=== PATIENT | male | born 1935 | race Hispanic/Latino ===

== ENCOUNTER 2017-09-30 12:46 | Emergency (ER) | payer MEDICARE ==
--- NOTE | 2017-09-30 13:43 | Emergency Department Report ---
Blank Doc - Documentation Documentation: Patient is a 2-year-old gentleman who went to the bathroom and has balance issues and fell after eating up from the commode. Patient states he fell backwards landing on his buttock and he has low back pain at this time. Patient had x-rays of his back will be reassessed by VERONICA thank you
[2017-09-30] MEDS ORDERED: ULTRAM PO ONE (13:44)
--- NOTE | 2017-09-30 13:50 | Emergency Department Report ---
ED Back Pain/Injury HPI - General Chief Complaint: Back Pain/Injury Stated Complaint: BACK PAIN Time Seen by Provider: 09/30/17 13:32 Source: patient Limitations: No Limitations - History of Present Illness Initial Comments: This is a 82-year-old male nontoxic, well nourished in appearance, no acute signs of distress presents to the ED with c/o of low back pain status post fall. Patient stated this morning he was going to the bathroom to urinate and lost his balance and fell backwards and landed on his lumbar spine. Patient denies any head trauma or loss of concessions. Patient discussed pain as achy that it radiates bilaterally to lower extremities. Denies any bladder or bowel stability. Denies any numbness, tingling, fever, chills, headache, stiff neck, abdominal pain, chest pain, short of breath, blurry vision. Vision denies decrease or abnormal gait. Patient denies any drug allergies or significant past medical history. MD Complaint: back pain, fall -: This morning Similar Symptoms Previously: Yes Place: home Radiation: left leg, right leg Severity: mild Severity scale (0 -10): 8 Quality: aching Consistency: constant Improves With: immobilization, supine, sitting upright Worsens With: movement, walking Context: fall Associated Symptoms: denies other symptoms. denies: confusion, weakness, chest pain, numbness, difficulty walking, cough, difficulty urinating, diaphoresis, incontinence, fever/chills, constipation, headaches, abdominal pain, loss of appetite, malaise, nausea/vomiting, rash, seizure, shortness of breath, syncope - Related Data Home Medications Medication Instructions Recorded Confirmed Last Taken Warfarin Sodium 5 mg PO DAILY 06/26/14 01/29/15 1 Day Ago ~01/28/15 Losartan [Cozaar] 12.5 mg PO QDAY 01/29/15 01/29/15 1 Day Ago ~01/28/15 Metoprolol [Lopressor] 12.5 mg PO DAILY 01/29/15 01/29/15 1 Day Ago ~01/28/15 Simvastatin [Zocor TAB] 20 mg PO QHS 01/29/15 01/29/15 1 Day Ago ~01/28/15 Previous Rx's Medication Instructions Recorded Last Taken Type Ibuprofen [Motrin] 600 mg PO Q8H PRN #30 tablet 09/30/17 Unknown Rx Allergies Allergy/AdvReac Type Severity Reaction Status Date / Time adhesive Allergy Itching Verified 12/18/14 14:00 ED Review of Systems ROS: Stated complaint: BACK PAIN Other details as noted in HPI Constitutional: denies: chills, fever Eyes: denies: eye pain, eye discharge, vision change ENT: denies: ear pain, throat pain Respiratory: denies: cough, shortness of breath, wheezing Cardiovascular: denies: chest pain, palpitations Endocrine: no symptoms reported Gastrointestinal: denies: abdominal pain, nausea, diarrhea Genitourinary: denies: urgency, dysuria Musculoskeletal: back pain. denies: joint swelling, arthralgia Skin: denies: rash, lesions Neurological: denies: headache, weakness, paresthesias Psychiatric: denies: anxiety, depression Hematological/Lymphatic: denies: easy bleeding, easy bruising ED Past Medical Hx - Past Medical History Hx Hypertension: Yes Hx Heart Attack/AMI: (Stable CHF) Hx Congestive Heart Failure: Yes Hx Diabetes: Yes Hx Liver Disease: Yes (some mass in the gallbladder on x-ray) Hx Kidney Stones: Yes (MULTIPLE KIDNEY STONE CURRENTLY WIHT STONE IN RI KIDNEY ) Hx HIV: No - Surgical History Hx Coronary Stent: Yes Hx Pacemaker: Yes Hx Internal Defibrillator: Yes (PACEMAKER/DEFIB FOR TACHYCARDIA) Hx Appendectomy: Yes - Social History Smoking Status: Never Smoker Substance Use Type: None - Medications Home Medications: Home Medications Medication Instructions Recorded Confirmed Last Taken Type Warfarin Sodium 5 mg PO DAILY 06/26/14 01/29/15 1 Day Ago History ~01/28/15 Losartan [Cozaar] 12.5 mg PO QDAY 01/29/15 01/29/15 1 Day Ago History ~01/28/15 Metoprolol [Lopressor] 12.5 mg PO DAILY 01/29/15 01/29/15 1 Day Ago History ~01/28/15 Simvastatin [Zocor TAB] 20 mg PO QHS 01/29/15 01/29/15 1 Day Ago History ~01/28/15 Ibuprofen [Motrin] 600 mg PO Q8H PRN #30 tablet 09/30/17 Unknown Rx ED Physical Exam - General Limitations: No Limitations General appearance: alert, in no apparent distress - Head Head exam: Present: atraumatic, normocephalic - Eye Eye exam: Present: normal appearance Pupils: Present: normal accommodation - ENT ENT exam: Present: normal exam, mucous membranes moist - Neck Neck exam: Present: normal inspection, full ROM. Absent: tenderness, meningismus, lymphadenopathy - Respiratory Respiratory exam: Present: normal lung sounds bilaterally. Absent: respiratory distress, wheezes, rales, rhonchi, stridor, chest wall tenderness, accessory muscle use, decreased breath sounds, prolonged expiratory - Cardiovascular Cardiovascular Exam: Present: regular rate, normal rhythm, normal heart sounds. Absent: bradycardia, tachycardia, irregular rhythm, systolic murmur, diastolic murmur, rubs, gallop - GI/Abdominal GI/Abdominal exam: Present: soft, normal bowel sounds - Rectal Rectal exam: Present: deferred - Extremities Exam Extremities exam: Present: normal inspection, full ROM, normal capillary refill. Absent: tenderness, pedal edema, joint swelling, calf tenderness - Back Exam Back exam: Present: normal inspection, full ROM, paraspinal tenderness (lumbar region). Absent: tenderness, CVA tenderness (R), CVA tenderness (L), muscle spasm, vertebral tenderness, rash noted - Expanded Back Exam Expanded Back exam: Absent: saddle anesthesia Back exam: Negative Straight Leg Raising: Left, Right - Neurological Exam Neurological exam: Present: alert, oriented X3, CN II-XII intact, normal gait - Psychiatric Psychiatric exam: Present: normal affect, normal mood - Skin Skin exam: Present: warm, dry, intact, normal color. Absent: rash ED Course Vital Signs 09/30/17 12:50 Temperature 98.6 F Pulse Rate 88 Blood Pressure 152/90 O2 Sat by Pulse 99 Oximetry - Reevaluation(s) Reevaluation #1: 09/30/17 13:53 Patient is speaking in full sentences with no signs of distress noted. ED Medical Decision Making - Medical Decision Making This is a 82-year-old male presents with low back strain. Patient stable was examined by me. X-ray has been obtained and dictated by the radiologist. She is notified of the x-ray report with no questionable the patient. Patient received Ultram in the ED. is present in the ED and stated she will drive the patient home after discharge. The symptoms are improving as subsided. No signs or symptoms of cauda equina syndrome. Patient discharged with Motrin. Patient was referred to Follow-up with a primary care doctor in 3-5 days or if symptoms worsen and continue return to emergency room as soon as possible. At time of discharge, the patient does not seem toxic or ill in appearance. No acute signs of distress noted. Patient agrees to discharge treatment plan of care. No further questions noted by the patient. Critical care attestation.: If time is entered above; I have spent that time in minutes in the direct care of this critically ill patient, excluding procedure time. ED Disposition Clinical Impression: Low back strain Qualifiers: Encounter type: initial encounter Qualified Code(s): S39.012A - Strain of muscle, fascia and tendon of lower back, initial encounter Disposition: TO HOME OR SELFCARE Is pt being admited?: No Does the pt Need Aspirin: No Condition: Stable Instructions: Low Back Strain (ED), Ibuprofen (By mouth) Additional Instructions: Follow-up with a primary care doctor in 3-5 days or if symptoms worsen and continue return to emergency room as soon as possible. Prescriptions: Ibuprofen [Motrin] 600 mg PO Q8H PRN #30 tablet PRN Reason: Pain Referrals: PRIMARY MD MARIA ISABEL [Primary Care Provider] - 3-5 Days SOFIA TAPIA MD [Staff Physician] - 3-5 Days [facility] [Outside] - 3-5 Days [facility] [Outside] - 3-5 Days Forms: Work/School Release Form(ED)
--- NOTE | 2017-09-30 14:13 | XRay Report ---
LUMBOSACRAL SPINE, 3 VIEWS: History: Back pain, injury Findings: Moderate osteopenia is evident. There is moderate multilevel degenerative disc disease and facet arthropathy. No evidence for compression deformity, subluxation or suspicious bone lesion. Aortobiiliac stent and IVC are in place. Impression: Osteopenia. Degenerative changes. No acute injury is identified on x-ray.
[2017-09-30 15:23] VITALS: BP 134/68
== END 2017-09-30 15:26 | disposition home or self-care (01) ==
LOC: ED 12:46
DX: S39.012A Strain of muscle, fascia and tendon of lower back, initial encounter (principal); I11.0 Hypertensive heart disease with heart failure; I50.9 Heart failure, unspecified; E11.9 Type 2 diabetes mellitus without complications; Z87.442 Personal history of urinary calculi; Z95.818 Presence of other cardiac implants and grafts; Z90.49 Acquired absence of other specified parts of digestive tract; Z91.09 Other allergy status, other than to drugs and biological substances; Z95.810 Presence of automatic (implantable) cardiac defibrillator; W19.XXXA Unspecified fall, initial encounter; Y93.89 Activity, other specified; Y99.8 Other external cause status; Y92.009 Unspecified place in unspecified non-institutional (private) residence as the place of occurrence of the external cause
CPT/HCPCS: 72100; 99283